=== PATIENT | male | born 1995 | race Hispanic/Latino ===

== ENCOUNTER 2024-05-15 10:24 | Emergency (ER) | payer SELFPAY ==
[2024-05-15] MEDS ORDERED: NA CHLORIDE 0.9% 1,000 ML ONE (11:00)
[2024-05-15] MEDS ORDERED: MORPHINE 4 MG/ML SYR ONE (11:00)
[2024-05-15 11:16] LABS: Hemoglobin 15.3 g/dL (13.6-17.9); Lymphocytes % 11.7 % (15.3-44.8); MCH 28.5 pg (27.0-35.0); MCV 83.8 fL (80-100); MPV 7.8 fL (7.6-11.3); Monocytes % 7.3 % (3.3-12.3); Neutrophils % 79.8 % (41.7-73.7); Platelets 238 thou/uL (152-406); RBC Red Blood Cell Count 5.37 M/uL (4.33-5.43); Red Cell Distribution Width 16.6 % (12.1-15.2)
[2024-05-15 11:17] LABS: Absolute Eosinophils 0.1 K/uL (0-0.5); Absolute Lymphocytes (CBC) 1.1 K/uL (0.7-4.9); Absolute Monocytes 0.7 K/uL (0.1-1.3); Absolute Neutrophil 7.8 K/uL (1.8-8.0); Basophils % 0.4 % (0-1.3); Eosinophils % 0.8 % (0-4.4)
[2024-05-15] MEDS ORDERED: ONDANSETRON 4 MG/2 ML VIAL ONE (11:20)
--- NOTE | 2024-05-15 11:21 | RAD REPORT ---
EXAM: CT brain without contrast HISTORY: Headache COMPARISON: None TECHNIQUE: Multiple contiguous axial images were obtained and a CT of the brain without contrast. Sagittal and coronal reformats were performed. Automated exposure control, adjustment of the mA and/or kV according to patient size, and/or itera tive reconstruction. Unless otherwise specified, incidental findings do not require dedicated imaging follow-u FINDINGS: An intracranial bleed is not seen Ventricles are normal caliber No extra-axial fluid collection noted No significant hypodensity within the brain Fluid is present within ethmoid and sphenoid is sinus. IMPRESSION: No acute intracranial abnormality noted. Acute sinusitis If the patient's symptoms persist MRI of the brain would be recommended.
[2024-05-15 11:23] LABS: PT Prothrombin Time 11.8 SECONDS (9.4-12.5); PTT, Activated Partial Thromb 28.4 SECONDS (24.3-36.9); Protime INR 1.06
--- NOTE | 2024-05-15 11:28 | RAD REPORT ---
EXAMINATION: Neck Angio CLINICAL INDICATION: Headache and neck pain TECHNIQUE: Axial CT images were obtained from the aortic arch to the skull base after intravenous adm inistration of 100 cc Isovue-370 utilizing angiographic protocol. Multiplanar reformats, as well as 3D post-processing (maximum intensity projection images, volume rendered images and/or shaded surface rendered images) were generated and reviewed. One or more of the following dose reduction techniques were used: Automated exposure control, adjustment of the mA and/or kV according to patient size, and/or iterative reconstruction. Unless otherwise specified, incidental findings do not require dedicated imaging follow-up. COMPARISON: No prior exam. FINDINGS: The visualized aortic arch and great vessels do not demonstrate a significant abnormality Common carotid, external carotid and internal carotid arteries unremarkable Right vertebral artery somewhat hypoplastic. Vertebral arteries unremarkable No significant stenosis noted. A dissection is not seen. Methods for NASCET criteria: mild stenosis, 0% to 49%; moderate, 50% to 69%; severe stenosis, 70% to 99% IMPRESSION: No acute vascular abnormality displayed
--- NOTE | 2024-05-15 11:28 | RAD REPORT ---
EXAMINATION: CTA HEAD CLINICAL INDICATION: Headache TECHNIQUE: Axial CT images were obtained through the head after 100 cc Isovue-370 intravenous contras t utilizing angiographic protocol with 3D post-processing (maximum intensity projection images, volume rendered images and/or shaded surface rendered images). One or more of the following dose red uction techniques were used: Automated exposure control, adjustment of the mA and/or kV according to patient size, and/or iterative reconstruction. Unless otherwise specified, incidental findings do not require dedicated imaging follow-up. COMPARISON: None FINDINGS: Distal internal carotid, basilar, anterior cerebral, middle cerebral and posterior cerebral arteries do not demonstrate a significant stenosis An aneurysm not noted IMPRESSION: No acute vascular abnormality displayed
[2024-05-15] MEDS ORDERED: HYDROMORPHONE HCL 1 MG/ML INJ ONE ×2 (13:36→16:44)
[2024-05-15] MEDS ORDERED: FLUCONAZOLE 100 MG TAB ONE (13:36)
--- NOTE | 2024-05-15 15:20 | EDPHYS ---
Physician Documentation [facility] Name: Cornell Hsu Age: 28 yrs Sex: Male : 1995 Arrival Date: 05/15/2024 Time: 10:24 Bed 13 Private MD: ED Physician Howard Wu HPI: 05/15 10:47 This 28 yrs old Male presents to ER via Ambulatory with complaints of sick rn x3days. 10:47 The patient complains of pain to the top of head and forehead. The patient describes rn the headache as aching. Onset: The symptoms/episode began/occurred 10 day(s) ago. Associated signs and symptoms: Pertinent positives: This patient does not have any pertinent positive signs or symptoms associated with a headache. Pertinent negatives: altered mental status, fever, neck stiffness, paresthesias, rash, vision changes, vision loss. Severity of symptoms: At its worst the pain was moderate, in the emergency department the pain is unchanged. The patient has experienced a previous episode. Patient reports headache for at least 10 days, seen here with negative workup at that time. Placed on antibiotics, reports headache got better for a little while, did not quite resolve, returns for worsening headache. Also reports mild pain. No trauma. Denies fever or chills.. Historical: - Allergies: 10:43 No Known Allergies; rs5 - PMHx: 10:43 None; rs5 - PSHx: 10:43 None; rs5 - Immunization history:: Adult Immunizations up to date. - Infectious Disease History:: Denies. - Social history:: Smoking status: Patient denies any tobacco usage or history of. - Family history:: not pertinent. - Hospitalizations: : No recent hospitalization is reported. ROS: 10:47 Constitutional: Negative for fever, chills, and weight loss, Neck: Negative for injury, rn pain, and swelling, Cardiovascular: Negative for chest pain, palpitations, and edema, Respiratory: Negative for shortness of breath, cough, wheezing, and pleuritic chest pain, Abdomen/GI: Negative for abdominal pain, nausea, vomiting, diarrhea, and constipation, Back: Negative for injury and pain, MS/Extremity: Negative for injury and deformity, Skin: Negative for injury, rash, and discoloration, Neuro: Positive for headache Exam: 10:47 Constitutional: Thin male, no acute distress ENT: Oral thrush noted Neck: Supple, No rn Meningismus. Cardiovascular: Regular rate and rhythm. No pulse deficits. Respiratory: No increased work of breathing, no retractions or nasal flaring. Abdomen/GI: Soft, non-tender MS/ Extremity: Pulses equal, no cyanosis. Neuro: Awake and alert, GCS 15, oriented to person, place, time, and situation. Cranial nerves II-XII grossly intact. Motor strength 5/5 in all extremities. Sensory grossly intact. Cerebellar exam normal. Normal gait. Vital Signs: 10:34 BP 126 / 83; Pulse 60; Resp 16; Temp 97.8; Pulse Ox 96% on R/A; Height 5 ft. 2 in. ; ll1 11:39 BP 144 / 90; Pulse 67; Resp 17; Pulse Ox 99% on R/A; rs5 12:00 BP 125 / 84; Pulse 64; Resp 16; Pulse Ox 100% ; me1 13:00 BP 144 / 95; Pulse 56; Resp 16; Pulse Ox 100% ; me1 14:00 BP 137 / 93; Pulse 61; Resp 16; Pulse Ox 100% on R/A; me1 14:05 Pain 8/10; me1 15:00 BP 144 / 93; Pulse 68; Resp 16; Pulse Ox 100% ; me1 15:42 Weight 68.04 kg; me1 16:00 BP 127 / 80; Pulse 66; Resp 16; Pulse Ox 99% ; me1 17:00 BP 132 / 81; Pulse 64; Resp 16; Temp 98.8; Pulse Ox 100% ; me1 14:05 Pain Scale: Adult me1 [place] Coma Score: 15:16 Eye Response: spontaneous(4). Motor Response: obeys commands(6). Verbal Response: rn oriented(5). Total: 15. Procedures: 15:11 Lumbar Puncture: Patient placed in left lateral decubitus position. Prepped with rn Betadine. Draped using sterile technique. Collected 12 ml's of clear fluid. Sample sent to lab. Puncture site dressed with band aid, Patient tolerated well. Opening pressure > 45. MDM: 10:35 Patient medically screened. rn 15:16 Differential diagnosis: meningitis, migraine, sinusitis, vasomotor headache, Atypical rn meningitis, HIV. Data reviewed: vital signs, nurses notes, and as a result, I will admit patient. 15:18 Counseling: I had a detailed discussion with the patient and/or guardian regarding the rn historical points, exam findings, and any diagnostic results supporting the discharge/admit diagnosis, lab results, radiology results, the need to transfer to another facility, for higher level of care, [facility] does not immediately have the required specialist. 15:18 ED course: I personally spent 35 minutes engaged in work directly related to the rn individual patient's care. This does not include any time spent performing procedures. The patient has been deemed critically ill because of severe headache, new HIV diagnosis, need for lumbar puncture and organization of transfer to higher level of care. 05/15 10:39 Order name: CBC with Diff; Complete Time: 11:35 05/15 10:39 Order name: Basic Metabolic Panel; Complete Time: 11:35 05/15 10:39 Order name: Protime (+inr); Complete Time: 11:35 05/15 10:39 Order name: Ptt, Activated; Complete Time: 11:35 rn 05/15 10:42 Order name: HIV Ag/Ab Combo; Complete Time: 13:58 rn 05/15 15:11 Order name: Csf Culture 05/15 15:11 Order name: Fluid Cell Count,Body; Complete Time: 16:58 rn 05/15 15:11 Order name: Spinal Fluid Profile; Complete Time: 16:58 05/15 15:16 Order name: Blood Culture Adult (2) 05/15 16:10 Order name: CSF VDRL EDKS 05/15 16:10 Order name: Fungal Culture and Stain EDKS 05/15 10:39 Order name: CT Head Brain wo Cont; Complete Time: 11:35 rn 05/15 10:39 Order name: Neck Angio CT; Complete Time: 11:35 rn 05/15 10:53 Order name: Head angio; Complete Time: 11:35 EDKS 05/15 10:39 Order name: IV Start; Complete Time: 11:03 rn 05/15 14:40 Order name: LP Consents; Complete Time: 15:42 rn 05/15 15:11 Order name: LP Setup; Complete Time: 15:24 rn Administered Medications: 11:05 Drug: NS 0.9% IV 1000 ml IV at 1000 ml once Route: IV; Rate: 1000 ml; Site: right rs5 antecubital; 12:10 Follow up: IV Status: Completed infusion; IV Intake: 1000ml rs5 11:08 Drug: morphine IVP or IV 4 mg IVP once over 4 mins Route: IVP; Infused Over: 4 mins; rs5 Site: right antecubital; 11:20 Follow up: Response: No adverse reaction; Pain is decreased rs5 11:25 Drug: Ondansetron IVP 4 mg IVP once; over 2 minutes Route: IVP; Site: right antecubital;rs5 11:39 Follow up: Response: No adverse reaction; Nausea is decreased rs5 13:40 Drug: HYDROmorphone IVP 1 mg IVP once Route: IVP; Site: right antecubital; me1 14:05 Follow up: Pain 8/10 Adult; Response: No adverse reaction; Pain is decreased me1 13:40 Drug: Fluconazole PO 200 mg PO once Route: PO; me1 15:25 Follow up: Response: No adverse reaction me1 16:17 Drug: Rocephin - Rocephin (cefTRIAXone) IVPB 2 grams IVPB once over 30 mins; (mix in me1 100 mL NS) Route: IVPB; Infused Over: 30 mins; Site: right antecubital; 16:52 Follow up: Response: No adverse reaction; IV Status: Completed infusion; IV Intake: me1 100ml 16:52 Drug: Acyclovir IVPB 10 mg/kg IVPB once Route: IVPB; Site: right antecubital; me1 17:05 Follow up: IV Status: Infusion continued upon transfer me1 17:05 Drug: vancoMYCIN IVPB 15 mg/kg IVPB once; once over 2 hrs; not to exceed 2 grams; (mix me1 in 250 to 500 mL NS) Route: IVPB; Site: right antecubital; 17:05 Follow up: IV Status: Infusion continued upon transfer me1 Disposition Summary: 05/15/24 15:20 Transfer Ordered Notes: Transfer Location: [facility] rn Reason: Higher level of care rn Condition: Stable rn Problem: new rn Symptoms: are unchanged rn Accepting Physician: (05/15/24 17:18) ll1 Diagnosis - Headache 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 Total time: 35 minutes rn Signatures: Dispatcher [employer] EDMS Howard Wu MD MD rn Lewis, Lynsay RN RN ll1 lAysa Briceno PA-C PA-C sb4 Lowell Jon RN RN rs5 Priscilla Dye RN RN me1 Corrections: (The following items were deleted from the chart) 10:52 10:42 HIV Ag/Ab Combo+SC.LAB.BRZ ordered. EDMS EDMS 15:11 15:11 CSF Culture+BA.LAB.BRZ ordered. EDMS EDMS 15:11 15:11 FLUID CELL COUNT,BODY+H.LAB.BRZ ordered. EDMS EDMS 15:11 15:11 SPINAL FLUID PROFILE+LAB.LAB.BRZ ordered. EDMS EDMS 17:18 15:20 rn ll1
--- NOTE | 2024-05-15 15:20 | ER ---
Nurse's Notes [facility] Name: Cornell Hsu Age: 28 yrs Sex: Male : 1995 Arrival Date: 05/15/2024 Time: 10:24 Bed 13 Private MD: Diagnosis: Headache;Human immunodeficiency virus [HIV] disease Presentation: 05/15 10:34 Method Of Arrival: Ambulatory ll1 10:34 Chief complaint: Patient states: Headache x2 weeks unrelieved with OTC medicine, with rs5 nausea, dizziness and blurry vision. Coronavirus screen: At this time, the client does not indicate any symptoms associated with coronavirus-19. 10:34 Ebola Screen: No symptoms or risks identified at this time. Initial Sepsis Screen: Does rs5 the patient meet any 2 criteria? No. Patient's initial sepsis screen is negative. Does the patient have a suspected source of infection? No. Patient's initial sepsis screen is negative. Risk Assessment: Do you want to hurt yourself or someone else? Patient reports no desire to harm self or others. Onset of symptoms was May 15, 2024. 10:34 Acuity: JONATHAN 3 rs5 Historical: - Allergies: 10:43 No Known Allergies; rs5 - PMHx: 10:43 None; rs5 - PSHx: 10:43 None; rs5 - Immunization history:: Adult Immunizations up to date. - Infectious Disease History:: Denies. - Social history:: Smoking status: Patient denies any tobacco usage or history of. - Family history:: not pertinent. - Hospitalizations: : No recent hospitalization is reported. Screenin:30 [facility] ED Fall Risk Assessment (Adult) History of falling in the last 3 months, rs5 including since admission No falls in past 3 months (0 pts) Confusion or Disorientation No (0 pts) Intoxicated or Sedated No (0 pts) Impaired Gait No (0 pts) Mobility Assist Device Used No (0 pt) Altered Elimination No (0 pt) Score/Fall Risk Level 0 - 2 = Low Risk Oriented to surroundings, Maintained a safe environment. Abuse screen: Denies threats or abuse. Nutritional screening: No deficits noted. Tuberculosis screening: No symptoms or risk factors identified. Assessment: 10:30 General: Appears in no apparent distress. uncomfortable, Behavior is calm, cooperative. rs5 Pain: Complains of pain in top of head Pain currently is 8 out of 10 on a pain scale. Quality of pain is described as aching, Is continuous. Neuro: Level of Consciousness is awake, alert, obeys commands, Oriented to person, place, time, situation, Reports dizziness. Cardiovascular: Patient's skin is warm and dry. Respiratory: Airway is patent Respiratory effort is even, unlabored, Respiratory pattern is regular, symmetrical. GI: Abdomen is round non-distended, Abd is soft and non tender X 4 quads. Reports nausea. : No signs and/or symptoms were reported regarding the genitourinary system. EENT: No signs and/or symptoms were reported regarding the EENT system. Derm: Skin is intact, Skin is pink, warm \T\ dry. Musculoskeletal: Range of motion: intact in all extremities. 11:20 Reassessment: pt back from CT with contrast and in room vomiting, provider notified . rs5 11:25 Reassessment: to bedside for med adm. rs5 15:53 General: Report called to KISHOR Castelan at [address] me1 17:01 Reassessment: Patient and/or family updated on plan of care and expected duration. Pain rs5 level reassessed. Patient is alert, oriented x 3, equal unlabored respirations, skin warm/dry/pink. 17:15 Reassessment: Patient and/or family updated on plan of care and expected duration. Pain rs5 level reassessed. Patient is alert, oriented x 3, equal unlabored respirations, skin warm/dry/pink. Vital Signs: 10:34 BP 126 / 83; Pulse 60; Resp 16; Temp 97.8; Pulse Ox 96% on R/A; Height 5 ft. 2 in. ; ll1 11:39 BP 144 / 90; Pulse 67; Resp 17; Pulse Ox 99% on R/A; rs5 12:00 BP 125 / 84; Pulse 64; Resp 16; Pulse Ox 100% ; me1 13:00 BP 144 / 95; Pulse 56; Resp 16; Pulse Ox 100% ; me1 14:00 BP 137 / 93; Pulse 61; Resp 16; Pulse Ox 100% on R/A; me1 14:05 Pain 8/10; me1 15:00 BP 144 / 93; Pulse 68; Resp 16; Pulse Ox 100% ; me1 15:42 Weight 68.04 kg; me1 16:00 BP 127 / 80; Pulse 66; Resp 16; Pulse Ox 99% ; me1 17:00 BP 132 / 81; Pulse 64; Resp 16; Temp 98.8; Pulse Ox 100% ; me1 14:05 Pain Scale: Adult me1 [place] Coma Score: 15:16 Eye Response: spontaneous(4). Motor Response: obeys commands(6). Verbal Response: rn oriented(5). Total: 15. ED Course: 10:26 Patient arrived in ED. ra3 10:30 Patient has correct armband on for positive identification. Placed in gown. Bed in low rs5 position. Call light in reach. Side rails up X2. 10:30 No provider procedures requiring assistance completed. rs5 10:32 Arm band placed on Patient placed in an exam room, on a stretcher. rs5 10:35 Howard Wu MD is Attending Physician. rn 10:42 Lowell Jon RN is Primary Nurse. rs5 10:43 Triage completed. rs5 11:17 CT Head Brain wo Cont In Process Unspecified. EDMS 11:[address] In Process Unspecified. EDMS 11:17 Head angio In Process Unspecified. EDMS 12:00 Inserted saline lock: 20 gauge in right antecubital area, using aseptic technique. me1 12:30 Provided Education on: POC. Verbalized understanding. me1 13:55 Notified ED physician of a critical lab result(s). HIV reactive. Dr. Wu. ll1 15:15 Assist provider with lumbar puncture: Set up LP tray. Performed by Howard Wu MD CSF me1 is clear. Puncture site dressed with band aid, Procedure was successful. Patient tolerated well. 15:29 initiated transfer to [facility]. bd 15:38 pt accepted in transfer to [facility] Melissa Jamil 11C rm [address] Carty bd admin approval given by Rusty Mary. 15:43 CSF VDRL Sent. me1 16:05 First set of blood cultures drawn by me, Second set of blood cultures drawn by me. me1 16:11 Blood Culture Adult (2) Sent. me1 16:20 Fungal Culture and Stain Sent. me1 16:23 tried to contact ems 2 times,no answer. [facility] transport pt to [facility]. 17:19 Patient transferred, IV remains in place. me1 Administered Medications: 11:05 Drug: NS 0.9% IV 1000 ml IV at 1000 ml once Route: IV; Rate: 1000 ml; Site: right rs5 antecubital; 12:10 Follow up: IV Status: Completed infusion; IV Intake: 1000ml rs5 11:08 Drug: morphine IVP or IV 4 mg IVP once over 4 mins Route: IVP; Infused Over: 4 mins; rs5 Site: right antecubital; 11:20 Follow up: Response: No adverse reaction; Pain is decreased rs5 11:25 Drug: Ondansetron IVP 4 mg IVP once; over 2 minutes Route: IVP; Site: right antecubital;rs5 11:39 Follow up: Response: No adverse reaction; Nausea is decreased rs5 13:40 Drug: HYDROmorphone IVP 1 mg IVP once Route: IVP; Site: right antecubital; me1 14:05 Follow up: Pain 8/10 Adult; Response: No adverse reaction; Pain is decreased me1 13:40 Drug: Fluconazole PO 200 mg PO once Route: PO; me1 15:25 Follow up: Response: No adverse reaction me1 16:17 Drug: Rocephin - Rocephin (cefTRIAXone) IVPB 2 grams IVPB once over 30 mins; (mix in me1 100 mL NS) Route: IVPB; Infused Over: 30 mins; Site: right antecubital; 16:52 Follow up: Response: No adverse reaction; IV Status: Completed infusion; IV Intake: me1 100ml 16:52 Drug: Acyclovir IVPB 10 mg/kg IVPB once Route: IVPB; Site: right antecubital; me1 17:05 Follow up: IV Status: Infusion continued upon transfer me1 17:05 Drug: vancoMYCIN IVPB 15 mg/kg IVPB once; once over 2 hrs; not to exceed 2 grams; (mix me1 in 250 to 500 mL NS) Route: IVPB; Site: right antecubital; 17:05 Follow up: IV Status: Infusion continued upon transfer me1 Medication: 11:39 VIS not applicable for this client. rs5 Intake: 12:10 IV: 1000ml; Total: 1000ml. rs5 16:52 IV: 100ml; Total: 1100ml. me1 Outcome: 15:20 ER care complete, transfer ordered by . rn 17:18 Patient left the ED. ll1 17:19 Transferred by ground EMS to [facility], Transfer form me1 completed. 17:19 Condition: stable 17:19 Instructed on the need for transfer, Signatures: Dispatcher [employer] EDMS Michelle Zepeda Roman, MD MD rn Lewis, Lynsay RN RN 1 Lowell Jon RN RN 5 Priscilla Dye RN RN ct1 Carey Rai ra3 Corrections: (The following items were deleted from the chart) 10:48 10:34 BP 126 / 83; Pulse 60bpm; Resp 16bpm; Pulse Ox 96% RA; Temp 97.8F; 63 kg; Height ll1 5 ft. 2 in.; BMI: 25.4; ll1
[2024-05-15] MEDS ORDERED: CEFTRIAXONE 2000 MG/VIAL ONE (16:11)
[2024-05-15] MEDS ORDERED: NA CHLORIDE 0.9% 100 ML ONE (16:11)
[2024-05-15 16:24] LABS: CSF Glucose 44 mg/dL (40-70)
[2024-05-15] MEDS ORDERED: NA CHLORIDE 0.9% 250 ML ONE (16:45)
[2024-05-15] MEDS ORDERED: VANCOMYCIN 1 GM/VIAL ONE (16:45)
[2024-05-15 16:51] LABS: Body Fluid Source CSF; Color of fluid Colorless (COLORLESS); Tube # #2
[2024-05-15 16:52] LABS: Appearance CLEAR (CLEAR); Body Fluid Source CSF; Fluid Total Volume 16 ml; Tube # #4
[2024-05-15 16:53] LABS: Appearance CLEAR (CLEAR); Color of fluid Colorless (COLORLESS)
[2024-05-15] MEDS ORDERED: VANCOMYCIN 1 GM in NA CHLORIDE 0.9% 250 ML IVPB ONE (17:00)
[2024-05-15] MEDS ORDERED: ACYCLOVIR INJ 700 MG in NA CHLORIDE 0.9% 100 ML IVPB ONE (17:00)
[2024-05-16 07:54] VITALS: BP 132/81; TEMP 98.8; O2SAT 100
== END 2024-05-15 17:18 | disposition short-term general hospital (02) ==
LOC: ER 10:24
PROC: 009U3ZX Drainage of Spinal Canal, Percutaneous Approach, Diagnostic (ICD-10-PCS; principal; 2024-05-15)
DX: R51.9 Headache, unspecified (principal); B20 Human immunodeficiency virus [HIV] disease
CPT/HCPCS: 36415; 62270; 70450; 70496; 70498; 80048; 82945; 84157; 85025; 85610; 85730; 86592; 87040; 87070; 87102; 87389; 87483; 89050; 96361; 96365; 96375; 99285; J0133; J0696; J1170; J2405; J7030; J7050; Q9967